=== PATIENT | female | born 1960 | race Caucasian/White ===

== ENCOUNTER → 2016-12-07 | Day surgery (SDC) | payer OTHER ==
[~2016-12-07] MED LIST: ACETYLCYSTEINE 20% 6,000 MG/30 ML ORAL SOLN VIAL ONE; BACT800T5 PO; ESTR1TAB PO; GABA100C4 PO; LACTATED RINGER'S 1000 ML INJ 1,000 ML ONE; OMEP20TA PO; PROPOFOL 500 MG/50 ML BTL IV ONE; STERILE WATER FOR INJ 20 ML VIAL ONE
== END | disposition home or self-care (01) ==
LOC: ESDC 09:18
PROVIDERS: ATTEND Internal Medicine Gastroenterology
DX: K22.70 Barrett's esophagus without dysplasia (principal)
CPT/HCPCS: 00740; 43229; J3010; J7120

== ENCOUNTER 2019-01-10 07:43 | Observation (INO) ==
[2019-01-10] MEDS ORDERED: Metoprolol Tartrate 25 MG Tablet PO ONE (08:37)
[2019-01-10] MEDS ORDERED: Chlorhexidine Gluconate 2% 1 Pack (2 Cloths) TOPICAL ONE (08:37)
[2019-01-10] MEDS ORDERED: Sodium Chlor 0.9% Inj 500 ML IV.SIG SCH (09:00)
[2019-01-10] MEDS ORDERED: fentaNYL Citrate Inj 250 MCG/5 ML Ampul ONE (11:19)
[2019-01-10] MEDS ORDERED: Estrogens Congugated Vag Cream w/app 30 GM Tube VAGINAL ONE (12:11)
[2019-01-10] MEDS ORDERED: Bupivacaine PF 0.25% Inj 30 ML Vial ONE (12:11)
[2019-01-10] MEDS ORDERED: Lidocaine PF 1% Inj 5 ML Syringe INFILTRATN ONE (12:28)
[2019-01-10] MEDS ORDERED: Neostigmine Inj 5 MG/5 ML Syringe IV.PUSH ONE (12:28)
[2019-01-10] MEDS ORDERED: Sodium Chlor 0.9% Inj 20 ML ONE (13:36)
[2019-01-10] MEDS ORDERED: Morphine Sulfate Inj 8 MG/ML Vial ONE (14:42)
[2019-01-10] MEDS ORDERED: LORazepam 0.5 MG Tablet PO PRN (15:00)
[2019-01-10] MEDS ORDERED: HYDROmorphone PF Inj 0.5 MG/0.5 ML Syringe ONE ×2 (15:40→15:42)
[2019-01-10] MEDS: Ketorolac Inj 30 MG/ML (IVP) Vial IV.PUSH SCH ×2 (17:34→23:57)
[2019-01-10] MEDS ORDERED: Gabapentin 300 MG Capsule PO SCH (21:00)
[2019-01-11] MEDS: Ketorolac Inj 30 MG/ML (IVP) Vial IV.PUSH SCH ×2 (05:38→12:07)
[2019-01-11] MEDS ORDERED: Pantoprazole Sodium 20 MG DR Tablet PO SCH (09:00)
[2019-01-11 12:12] VITALS: RESP 18
[2019-01-11 17:03] VITALS: BP 137/67; PULSE 82; TEMP 98.8; O2SAT 96
--- NOTE | 2019-01-24 14:25 | P.OP ---
- Preoperative Diagnosis (1) LLQ pain (2) Left ovarian cyst (3) YANET (stress urinary incontinence, female) - Postoperative Diagnosis (1) LLQ pain (2) Left ovarian cyst (3) Right ovarian cyst (4) YANET (stress urinary incontinence, female) Date of procedure: 01/10/19 Procedure: Laparoscopic bilateral salpingo-oophorectomy Placement of transobturator midurethral sling with cystoscopy Anesthesia: [facility] Surgeon: Cassandra Hamm MD Estimated blood loss (mL): 100 Pathology: other (bilateral tubes and ovaries) Operation and Findings: Patient was taken to the operating suite and laid supine on the operating table. After induction of general anesthesia, the left arm was tucked and she was placed in low stirrups. After prep and drape and time out, Espinosa catheter was placed. A weighted speculum was used to place the [employer] uterine manipulator. After re-gloving a 1 cm incision was cut in the abdomen. Veris needle was used to instill 2.6 liters of CO2. 5 mm ports were placed in the right and left quadrants using direct visualization and transillumination to avoid adhesions and major vessels. Using the Harmonic device the right infundibulopelvic ligament was transected, and the right adnexa was freed with just a little more dissection at previous hysterectomy site. The adnexa were placed in an EndoCatch bag and extracted through the umbilicus intact. The same procedure was carried out on the left, using a separate EndoCatch bag. The procedure being complete, the patient's ports were removed. The umbilical incision was closed with a deep 0 Vicryl on the facia, and then all three incisions were closed subcuticularly with 4-0 Monocryl. Attention was then turned to the vagina. Dilute vasopressin was used to inject the anterior vaginal wall. An incision was then made in the mucosa with a #10 blade over the midportion of the ureter, using the urinary catheter. Using careful dissection the mucosa was undermined all the way to the anterior lateral sulci. Stab wounds were made in the groins at about the level of the urethra. The "needle" that comes with the sling was passed to the mucosal opening over the urethra, the sling was threaded, and it was pulled back through to the groin incision, taking care not to let it twist. The other side was done in the same way. Cystoscopy was done to make sure there was no perforation of the bladder, and to make sure the closing tension on the urethra was good but not too tight. The sling ends were cut flush to the skin and the incisions were closed with 3-0 Vicryl, then sealed with Dermabond. The mucosal defect was also closed with 3-0 Vicryl, and vaginal packing was placed. The Espinosa catheter was re-inserted and reconnected. The patient was awakened and transported to the PACU awake and breathing on her own. Sponge, needle and instrument counts were normal.
== END 2019-01-11 17:08 | disposition home or self-care (01) ==
LOC: PHOR 07:43 → PHEDA 07:43 → PH3 17:02
PROVIDERS: ADMIT Obstetrics & Gynecology; ATTEND Obstetrics & Gynecology
DX: Z90.710 Acquired absence of both cervix and uterus; N83.201 Unspecified ovarian cyst, right side; N39.3 Stress incontinence (female) (male); N83.8 Other noninflammatory disorders of ovary, fallopian tube and broad ligament; N83.202 Unspecified ovarian cyst, left side; Z80.3 Family history of malignant neoplasm of breast
CPT/HCPCS: 51798; 88305; 96374; 96376; C1771; G0378; J0690; J1100; J1170; J1885; J2250; J2270; J2405; J2704; J2710; J3010; J7120